=== PATIENT | female | born 1935 | race Hispanic/Latino ===

== ENCOUNTER 2021-10-05 12:02 | Inpatient (IN) | payer MEDICARE ==
[~2021-10-05] VITALS: Ht 157.5 cm; Wt 71.0 kg
[~2021-10-05 12:02] MED LIST: AMLO-257 PO; ASPI-556 PO; CALC-898 PO; CARV12.511 PO; FLAX100030 PO; GABA-529 PO; MULT-1258 PO; OMEG1CAP43 PO; PRAV10TA39 PO; PRED1TAB PO; ROPI0.257 PO; VITA1CAP85 PO; VITAMIN B 12 PO
[2021-10-05 12:29] LABS: BASOPHILS % (AUTO) 0.3 % (0.0-5.0); EOSINOPHILS % (AUTO) 2.7 % (0.0-8.0); HEMATOCRIT 35.9 % (36-48); LYMPHOCYTES % (AUTO) 17.8 % (21.0-51.0); MEAN CORPUSCULAR HEMOGLOBIN 30.8 pg (27.0-33.0); MEAN CORPUSCULAR HGB CONC 33.4 g/dL (32.0-36.0); MEAN CORPUSCULAR VOLUME 92.3 fL (79-99); MONOCYTES % (AUTO) 7.3 % (3.0-13.0); NEUTROPHILS % (AUTO) 71.4 % (40.0-77.0); PLATELET COUNT (AUTO) 223 K/uL (130-400); RED BLOOD CELL COUNT(AUTO) 3.89 MIL/uL (4.00-5.50); RED CELL DISTRIBUTION WIDTH 12.4 % (11.0-15.5); WHITE BLOOD COUNT (AUTO) 9.4 K/uL (4.8-10.8)
[2021-10-05] MEDS ORDERED: HYDROCODONE/ACETAMINOPHEN 5/325 MG TAB PO ONE (12:30)
[2021-10-05 12:47] LABS: CARBON DIOXIDE 30 mmol/L (21-32); CHLORIDE 101 mmol/L (101-111); GLOMERULAR FILTR. RATE CALC 56 mL/min (>60); GLUCOSE,RANDOM 105 mg/dL (70-105); POTASSIUM 4.7 mmol/L (3.5-5.1); SODIUM SERUM 137 mmol/L (136-145); UREA NITROGEN, BLOOD 14 mg/dL (7-18)
[2021-10-05 12:51] LABS: ALANINE AMINOTRANSFERASE 25 U/L (12-78); ALBUMIN 3.1 g/dL (3.5-5.0); ASPARTATE AMINOTRANSFERASE 16 U/L (10-37); TOTAL PROTEIN, SERUM 6.6 g/dL (6.0-8.3)
[2021-10-05 12:52] LABS: CRP QUANTITATIVE < 2.00 mg/L (0.00-9.0)
[2021-10-05 12:59] LABS: B-TYPE NATRIURETIC PEPTIDE 276 pg/mL (0-100)
[2021-10-05 13:23] LABS: INR 0.93 (0.85-1.15)
[2021-10-05 13:24] LABS: PARTIAL THROMBOPLASTIN TIME 25.8 SEC (26.3-35.5)
[2021-10-05 14:48] LABS: APPEARANCE,URINE CLEAR (CLEAR); BILIRUBIN,URINE NEGATIVE (NEGATIVE); COLOR,URINE YELLOW (YELLOW); GLUCOSE, URINE (UA) NEGATIVE (NEGATIVE); KETONES,URINE NEGATIVE (NEGATIVE); LEUKOCYTE ESTERASE ,URINE NEGATIVE (NEGATIVE); NITRATE,URINE NEGATIVE (NEGATIVE); OCCULT BLOOD,URINE NEGATIVE (NEGATIVE); PROTEIN,URINE NEGATIVE (NEGATIVE); UROBILINOGEN,URINE 0.2 mg/dL (0.2-1.0)
[2021-10-05] MEDS ORDERED: 0.9%NACL 1000ML 1,000 ML IV ONE (15:30)
[2021-10-05 15:39] LABS: HEMOGLOBIN A1C 6.1 % (4.0-6.0)
[2021-10-05 15:50] LABS: THYROID STIMULATING HORMONE 2.2 uIU/mL (0.36-3.74)
[2021-10-05] MEDS ORDERED: CEFTRIAXONE 1G VIAL IVP SCH (17:30)
[2021-10-05] MEDS ORDERED: LOSA50TA64 PO (17:47)
[2021-10-05] MEDS ORDERED: SENN-141 PO (18:02)
[2021-10-05] MEDS ORDERED: ICOS1CAP PO (18:02)
[2021-10-05] MEDS ORDERED: RANO500T2 PO (18:02)
[2021-10-05] MEDS ORDERED: MEMA10TA55 PO (18:02)
[2021-10-05] MEDS ORDERED: VIT B PO (18:02)
[2021-10-05] MEDS ORDERED: NITR0.4T50 SL (18:02)
[2021-10-05] MEDS ORDERED: ICOS1CAP2 PO (18:02)
[2021-10-05] MEDS ORDERED: VIT D3 PO (18:02)
[2021-10-05] MEDS ORDERED: ESCI-8 PO (18:02)
[2021-10-05] MEDS ORDERED: ROPI8TAB3 PO (18:02)
[2021-10-05] MEDS ORDERED: ROSU10TA28 PO (18:02)
[2021-10-05] MEDS ORDERED: CARV6.25 PO (18:02)
[2021-10-05] MEDS: TRAMADOL HCL 50 MG TABLET PO PRN ×2 (18:37→23:47)
[2021-10-05 18:43] VITALS: BP 128/68
[2021-10-05 20:00] VITALS: BP 141/59
[2021-10-05] MEDS: CARVEDILOL 6.25 MG TABLET PO SCH (20:29)
[2021-10-05] MEDS: RANOLAZINE 500 MG TAB.SR.12H PO SCH (20:35)
[2021-10-05] MEDS: MEMANTINE HCL 5 MG TABLET PO SCH (20:36)
[2021-10-06] VITALS: BP 161/82
[2021-10-06 04:00] VITALS: BP 147/56
[2021-10-06] MEDS: TRAMADOL HCL 50 MG TABLET PO PRN (05:58)
[2021-10-06 07:45] LABS: BASOPHILS % (AUTO) 0.4 % (0.0-5.0); EOSINOPHILS % (AUTO) 2.6 % (0.0-8.0); HEMATOCRIT 35.9 % (36-48); LYMPHOCYTES % (AUTO) 19.6 % (21.0-51.0); MEAN CORPUSCULAR HGB CONC 33.7 g/dL (32.0-36.0); MEAN CORPUSCULAR VOLUME 92.1 fL (79-99); MONOCYTES % (AUTO) 6.9 % (3.0-13.0); PLATELET COUNT (AUTO) 210 K/uL (130-400); RED CELL DISTRIBUTION WIDTH 12.3 % (11.0-15.5); WHITE BLOOD COUNT (AUTO) 8.2 K/uL (4.8-10.8)
[2021-10-06 07:46] LABS: CREATININE 0.9 mg/dL (0.5-1.5); CRP QUANTITATIVE 13.3 mg/L (0.00-9.0); POTASSIUM 4.2 mmol/L (3.5-5.1)
[2021-10-06 08:00] VITALS: BP 144/75
[2021-10-06] MEDS: MEMANTINE HCL 5 MG TABLET PO SCH ×2 (08:07→20:02)
[2021-10-06] MEDS: ATORVASTATIN 20 MG TABLET PO SCH (08:07)
[2021-10-06] MEDS: ICOSAPENT ETHYL 1 GM PO SCH (08:07)
[2021-10-06] MEDS: RANOLAZINE 500 MG TAB.SR.12H PO SCH ×2 (08:07→20:02)
[2021-10-06] MEDS: CITALOPRAM 20 MG TABLET PO SCH (08:07)
[2021-10-06] MEDS: CARVEDILOL 6.25 MG TABLET PO SCH ×2 (08:08→20:02)
[2021-10-06 12:00] VITALS: BP 134/88
[2021-10-06] MEDS: BENZOCAINE/MENTH/CETYLPYRD CL 1 EACH LOZENGE MM PRN (12:21)
[2021-10-06 16:00] VITALS: BP 135/73
[2021-10-06] MEDS ORDERED: LACTULOSE 20 GM/30 ML UDCUP PO PRN (19:30)
[2021-10-06 19:55] VITALS: BP 138/75
[2021-10-06] MEDS ORDERED: DiphenhydrAMINE HCL 50 MG/ML VIAL IV ONE (21:00)
[2021-10-07] VITALS (7 sets, daily range): BP systolic 122–176; BP diastolic 63–76
[2021-10-07] MEDS ORDERED: SENNOSIDES PO SCH (09:00)
[2021-10-07] MEDS ORDERED: DOCUSATE SODIUM PO SCH (09:00)
[2021-10-07] MEDS: CARVEDILOL 6.25 MG TABLET PO SCH ×2 (09:00→21:29)
[2021-10-07] MEDS: ICOSAPENT ETHYL 1 GM PO SCH (09:00)
[2021-10-07] MEDS: MEMANTINE HCL 5 MG TABLET PO SCH ×2 (13:18→21:28)
[2021-10-07] MEDS: RANOLAZINE 500 MG TAB.SR.12H PO SCH ×2 (13:18→21:28)
[2021-10-07] MEDS: ATORVASTATIN 20 MG TABLET PO SCH (13:18)
[2021-10-07] MEDS: CITALOPRAM 20 MG TABLET PO SCH (13:18)
[2021-10-07] MEDS: RISPERIDONE 1 MG TABLET PO SCH (21:28)
[2021-10-08 03:37] VITALS: BP 112/62
[2021-10-08 06:56] VITALS: BP 147/54
[2021-10-08] MEDS: RANOLAZINE 500 MG TAB.SR.12H PO SCH (09:24)
[2021-10-08] MEDS: CITALOPRAM 20 MG TABLET PO SCH (09:25)
[2021-10-08] MEDS: ATORVASTATIN 20 MG TABLET PO SCH (09:25)
[2021-10-08] MEDS: MEMANTINE HCL 5 MG TABLET PO SCH (09:25)
[2021-10-08] MEDS: RISPERIDONE 1 MG TABLET PO SCH (09:25)
[2021-10-08] MEDS: CARVEDILOL 6.25 MG TABLET PO SCH (09:25)
[2021-10-08] MEDS: BENZOCAINE/MENTH/CETYLPYRD CL 1 EACH LOZENGE MM PRN (10:20)
[2021-10-08 12:00] VITALS: BP 107/37
== END 2021-10-08 14:17 | DRG 177 ==
LOC: EDH 12:02 → EDHIP 15:08 → INTOOBSV 15:08 → OBSVTOIN 15:08 → 2AH 17:06
PROVIDERS: ADMIT Internal Medicine; ATTEND Internal Medicine
DX: U07.1 COVID-19 (principal); G93.41 Metabolic encephalopathy; J12.82 Pneumonia due to coronavirus disease 2019; S20.219A Contusion of unspecified front wall of thorax, initial encounter; I10 Essential (primary) hypertension; I25.10 Atherosclerotic heart disease of native coronary artery without angina pectoris; W01.0XXA Fall on same level from slipping, tripping and stumbling without subsequent striking against object, initial encounter; R29.6 Repeated falls; F03.90 Unspecified dementia, unspecified severity, without behavioral disturbance, psychotic disturbance, mood disturbance, and anxiety; E78.00 Pure hypercholesterolemia, unspecified; Z82.0 Family history of epilepsy and other diseases of the nervous system; Z82.3 Family history of stroke; Z82.49 Family history of ischemic heart disease and other diseases of the circulatory system; Z82.5 Family history of asthma and other chronic lower respiratory diseases; Z83.3 Family history of diabetes mellitus; Z86.73 Personal history of transient ischemic attack (TIA), and cerebral infarction without residual deficits; Z90.49 Acquired absence of other specified parts of digestive tract; Z90.710 Acquired absence of both cervix and uterus; Z95.1 Presence of aortocoronary bypass graft; Z98.61 Coronary angioplasty status; Y93.89 Activity, other specified; Y92.89 Other specified places as the place of occurrence of the external cause; Y99.8 Other external cause status
CPT/HCPCS: 36415; 70450; 70551; 71250; 72125; 73502; 74176; 80048; 80053; 81003; 82550; 82948; 83036; 83735; 83880; 84145; 84443; 84484; 85025; 85610; 85730; 86140; 87088; 87635; 92610; 93005; 93306; 93356; 93880; 97039; C9803; G0378; J0696; J1200; J7030

== ENCOUNTER 2023-09-19 14:11 | Emergency (ER) | payer MEDICARE ==
[~2023-09-19] VITALS: Ht 152.4 cm; Wt 59.0 kg
[2023-09-19 15:00] LABS: BASOPHILS # (AUTO) 0.03 K/uL (0.00-0.20); BASOPHILS % (AUTO) 0.2 % (0.0-5.0); EOSINOPHILS # (AUTO) 0.15 K/uL (0.00-0.70); EOSINOPHILS % (AUTO) 1.2 % (0.0-8.0); HEMATOCRIT 39.9 % (36-48); IMMATURE GRANULOCYTE ABSOLUTE 0.06 K/uL (0-1); LYMPHOCYTES # (AUTO) 1.7 K/uL (1.0-4.8); LYMPHOCYTES % (AUTO) 13.6 % (21.0-51.0); MEAN CORPUSCULAR HEMOGLOBIN 29.9 pg (27.0-33.0); MEAN CORPUSCULAR HGB CONC 33.1 g/dL (32.0-36.0); MEAN CORPUSCULAR VOLUME 90.5 fL (79-99); MONOCYTES # (AUTO) 0.7 K/uL (0.1-1.0); MONOCYTES % (AUTO) 5.4 % (3.0-13.0); NEUTROPHILS # (AUTO) 9.8 K/uL (1.8-7.7); NEUTROPHILS % (AUTO) 79.1 % (40.0-77.0); PLATELET COUNT (AUTO) 248 K/uL (130-400); RED BLOOD CELL COUNT(AUTO) 4.41 MIL/uL (4.00-5.50); RED CELL DISTRIBUTION WIDTH 13.5 % (11.0-15.5); WHITE BLOOD COUNT (AUTO) 12.4 K/uL (4.8-10.8)
[2023-09-19 15:09] LABS: POTASSIUM 4.5 mmol/L (3.5-5.1)
[2023-09-19 15:12] LABS: INR 0.99 (0.85-1.15); PROTHROMBIN TIME 10.7 SEC (9.6-11.6)
[2023-09-19 16:59] VITALS: BP 169/60; PULSE 52; RESP 14; O2SAT 97
== END 2023-09-19 17:13 ==
LOC: EDH 14:11
DX: R29.6 Repeated falls (principal); F03.90 Unspecified dementia, unspecified severity, without behavioral disturbance, psychotic disturbance, mood disturbance, and anxiety; E78.00 Pure hypercholesterolemia, unspecified; I10 Essential (primary) hypertension; Z88.6 Allergy status to analgesic agent; W19.XXXA Unspecified fall, initial encounter; Y93.89 Activity, other specified; Y92.89 Other specified places as the place of occurrence of the external cause; Y99.8 Other external cause status
CPT/HCPCS: 36415; 70450; 72125; 80048; 84484; 85025; 85610; 85730; 93005

== ENCOUNTER 2023-09-21 21:49 | Emergency (ER) | payer MEDICARE ==
[2023-09-21 22:30] LABS: BASOPHILS # (AUTO) 0.04 K/uL (0.00-0.20); BASOPHILS % (AUTO) 0.4 % (0.0-5.0); EOSINOPHILS # (AUTO) 0.25 K/uL (0.00-0.70); EOSINOPHILS % (AUTO) 2.3 % (0.0-8.0); HEMATOCRIT 40.8 % (36-48); IMMATURE GRANULOCYTE ABSOLUTE 0.09 K/uL (0-1); LYMPHOCYTES # (AUTO) 1.7 K/uL (1.0-4.8); LYMPHOCYTES % (AUTO) 15.1 % (21.0-51.0); MEAN CORPUSCULAR HEMOGLOBIN 29.8 pg (27.0-33.0); MEAN CORPUSCULAR HGB CONC 33.1 g/dL (32.0-36.0); MEAN CORPUSCULAR VOLUME 90.1 fL (79-99); MONOCYTES # (AUTO) 0.8 K/uL (0.1-1.0); MONOCYTES % (AUTO) 7.5 % (3.0-13.0); NEUTROPHILS # (AUTO) 8.2 K/uL (1.8-7.7); NEUTROPHILS % (AUTO) 73.9 % (40.0-77.0); PLATELET COUNT (AUTO) 290 K/uL (130-400); RED BLOOD CELL COUNT(AUTO) 4.53 MIL/uL (4.00-5.50); RED CELL DISTRIBUTION WIDTH 13.2 % (11.0-15.5)
[2023-09-21 22:40] LABS: CREATININE 0.8 mg/dL (0.5-1.0); POTASSIUM 4.4 mmol/L (3.5-5.1)
[2023-09-21 22:43] LABS: INR <= 0.93 (0.85-1.15); PROTHROMBIN TIME 10.1 SEC (9.6-11.6)
[2023-09-21 22:44] LABS: PARTIAL THROMBOPLASTIN TIME 27.2 SEC (26.3-35.5)
[2023-09-22] MEDS: ACETAMINOPHEN 500 MG TABLET PO ONE (00:02)
[2023-09-22 00:06] VITALS: BP 180/65; PULSE 60; RESP 16; O2SAT 98
== END 2023-09-22 01:40 ==
LOC: EDH 21:49
DX: S00.83XA Contusion of other part of head, initial encounter (principal); I10 Essential (primary) hypertension; E78.00 Pure hypercholesterolemia, unspecified; F03.90 Unspecified dementia, unspecified severity, without behavioral disturbance, psychotic disturbance, mood disturbance, and anxiety; Z88.6 Allergy status to analgesic agent; Z88.8 Allergy status to other drugs, medicaments and biological substances; W18.39XA Other fall on same level, initial encounter; Y93.89 Activity, other specified; Y92.89 Other specified places as the place of occurrence of the external cause; Y99.8 Other external cause status
CPT/HCPCS: 36415; 70450; 80048; 85025; 85610; 85730; 93005